=== PATIENT | female | born 1980 | race American Indian/Alaskan Native ===

== ENCOUNTER 2022-01-01 06:05 | Observation (INO) | payer BC ==
--- NOTE | 2021-12-31 15:15 | Anesthesia Consultation ---
Anesthesia Consult and Med Hx Date of service: 01/01/22 - Airway Anesthetic Teeth Evaluation: Good ROM Head & Neck: Adequate Mental/Hyoid Distance: Adequate Mallampati Class: Class II Intubation Access Assessment: Probably Good - Pulmonary Exam CTA: Yes - Cardiac Exam Cardiac Exam: RRR - Pre-Operative Health Status ASA Pre-Surgery Classification: ASA1 Proposed Anesthetic Plan: General Nerve Block: TAP - Pulmonary Hx Smoking: No Hx Respiratory Symptoms: No - Cardiovascular System Hx Hypertension: No - Central Nervous System CVA: No - Endocrine Hx Renal Disease: No Hx Liver Disease: No Hx Insulin Dependent Diabetes: No Hx Non-Insulin Dependent Diabetes: No Hx Thyroid Disease: No - Other Systems Hx Obesity: No - Additional Comments Anesthesia Medical History Comments: No hx anesthetic complications.
[2021-12-31 15:27] LABS: Basophils % (Auto) 0.6 % (0.0-1.8); Eosinophils % (Auto) 0.3 % (0.0-4.3); Hematocrit 38.7 % (30.3-42.9); Hemoglobin 12.5 gm/dl (10.1-14.3); Lymphocytes # (Auto) 1.1 K/mm3 (1.2-5.4); Lymphocytes % (Auto) 27.1 % (13.4-35.0); Mean Corpuscular HGB Conc 32 % (30-34); Mean Corpuscular Volume 87 fl (79-97); Monocytes # (Auto) 0.3 K/mm3 (0.0-0.8); Monocytes % (Auto) 6.4 % (0.0-7.3); Platelet Count 234 K/mm3 (140-440); Red Blood Count 4.47 M/mm3 (3.65-5.03)
--- NOTE | 2021-12-31 18:01 | History and Physical Report ---
History of Present Illness Date of examination: 12/27/21 Chief complaint: Menorrhagia and duysmenorrhea History of present illness: This is a 41 years old female who presents with menstrual disorder. She complains of heavy bleeding, dysmenorrhea and clotting. Menstrual flow lasts > 7 days. Bleeds heavy 3-4/7-8 days and has to change tampons and pads qhour on her heaviest days. Menstrual History: LMP (date): 12/08/2021 Current Method of Contraception: Condoms Past History : 3 Term Births: 2 Living Children: 2 Aborta: 1 Elect. Ab: 1 # 1 Delivery date: 2004 Delivery type: Comments: placenta abruption # 2 Delivery type: # 3 Delivery date: 2020 Delivery type: EAB [facility] History Operations: x2 Cholecystectomy (07/16/2021) Abnormal PAP: negative Infection History HIV Risk Eval: no Hx of STD: chlamydia Active Medications (reviewed today): Vitamin C unspecified unspecified (ascorbic acid (vitamin c)) Vitamin D3 unspecified unspecified (cholecalciferol (vitamin d3)) zinc unspecified unspecified (zinc) Current Allergies (reviewed today): No known allergies Past Medical History: Reviewed history from 08/10/2021 and no changes required: Anemia Sickle cell trait Past Surgical History: Reviewed history from 08/10/2021 and no changes required: x2 Cholecystectomy (07/16/2021) Family History Summary: Reviewed history and no changes required: 12/31/2021 Other Family Member - Has No Family History of Uterine Cancer - Entered On: 09/14/2021 Other Family Member - Has No Family History of Small Bowel Cancer - Entered On: 09/14/2021 Other Family Member - Has No Family History of Stomach Cancer - Entered On: 09/14/2021 Other Family Member - Has No Family History of Pancreatic Cancer - Entered On: 09/14/2021 Other Family Member - Has No Family History of Ovarvian Cancer - Entered On: 09/14/2021 Other Family Member - Has No Family History of Kidney/Urinary Tract Cancer - Entered On: 09/14/2021 Other Family Member - Has No Family History of Spontaneous DVT-PE - Entered On: 09/14/2021 Other Family Member - Has No Family History of Colon Cancer - Entered On: 09/14/2021 Other Family Member - Has No Family History of Brain Cancer - Entered On: 09/14/2021 Other Family Member - Has No Family History of Breast Cancer - Entered On: 09/14/2021 Other Family Member - Has No Family History of Biliary Tract Cancer - Entered On: 09/14/2021 Mother - Has Family History of Cervical Cancer - Entered On: 09/14/2021 Social History: Reviewed history from 08/10/2021 and no changes required: Patient is Smoking History: Patient has never smoked. Risk Factors: Smoked Tobacco Use: Never smoker Smokeless Tobacco Use: Never Passive Smoke Exposure: no HIV High Risk Behavior: no Exercise: yes Seatbelt Use: 100 % Alcohol Use: yes Drinks per day: social Drug Use: no Previous Tobacco Use: Signed On - 09/14/2021 Smoked Tobacco Use: Never smoker Smokeless Tobacco Use: Never Passive Smoke Exposure: no HIV High Risk Behavior: no Exercise: yes Times/wk: 2 Type of Exercise: walking Seatbelt Use: 100 % Alcohol Use: yes Drinks per day: social Drug Use: no Physical Exam Appearance: well developed, well nourished, no acute distress Other Exams Lungs: no rales, rhonchi, or wheezes Heart: S1, S2, no murmur, rub, or gallop Genitourinary Exam Uterus: deferred for EUA Impression & Recommendations: Problem # 1: Menorrhagia (ICD-626.2) (QOK03-H87.0) Diagnosis explained to patient . Questions answered. Discussed with patient various medical and surgical therapies common for treatment: Hormonal/medical therapy,endometrial ablation or hysterectomy. She desires to proceed with hysterectomy. with (B) salpingectomy. Orders: [facility] [id number] ([id number]) Diagnosis explained to patient . Discussed with patient various medical and surgical common for treatment including, but not limited to, medical/hormonal therapy, hysterectomy and ablation. Discussed risks and benefits of laparotomy, laparoscopy, vaginal and robotic assisted approaches for hysterectomies. Patient desires definitive treatment in the form of robot assisted laparoscopic total hysterectomy. The risks and alternatives for this surgery were reviewed with the patient. She was informed of the risks of the surgery including, but not limited to, pain, infection, bleeding possibly heavy enough to require a blood transfusion with associated risks of infections (hepatitis and HIV) and transfusion reactions, possible damage to bowel, bladder or ureter(s) and surrounding organs. She was also informed of slight increased risk for vaginal cuff breakdown with the robotic approach. Patient understands that this surgery will make her sterile. Indications to abort a robotic/laparoscopic procedure and perform an open procedure were explained. Patient understands if her ovaries are removed she will become menopausal. She desires ovarian conservation. She was informed she may require surgery later to have her ovaries removed for a benign or malignant condition.Patient advised the small risks of spreading of malignancy if morcellation is required during the surgery, patient understands and approves performing if necessary. Questions answered. Consent reviewed and signed. Nothing to eat or drink after midnight the evening prior to surgery.. Pre-op instruction sheets given. Wound care instructions given. Problem # 2: Dysmenorrhea (ICD-625.3) (ALX12-E78.6) She was informed she may have pelvic adhesions that may increase the risk for complications. It was extensively explained to her that her pain may persist, recur or change in nature due to the difficulty with determining the exact etiology(ies) of pain or development of adhesions. She declined other treatment options at this time. Questions were encouraged and answered Her updated medication list for this problem includes: Vitamin C Unspecified Unspecified (Ascorbic acid (vitamin c)) Vitamin D3 Unspecified Unspecified (Cholecalciferol (vitamin d3)) Medications and Allergies Allergies Allergy/AdvReac Type Severity Reaction Status Date / Time No Known Allergies Allergy Unverified 12/27/21 08:07 Home Medications Medication Instructions Recorded Confirmed Last Taken Type Multivitamin [Multiple Vitamins] 1 each PO DAILY 12/27/21 12/27/21 Unknown History Active Meds: Active Medications Acetaminophen (Acetaminophen 500 Mg Tab) 1,000 mg PO PREOP SIMEON Stop: 01/01/22 20:00 Celecoxib (Celecoxib 200 Mg Cap) 200 mg PO PREOP NR Stop: 01/01/22 20:00 Fentanyl (Fentanyl 100 Mcg/2 Ml Inj) 100 mcg IV ONCE PRN PRN Reason: sedation for nerve block Stop: 01/01/22 20:00 Gabapentin (Gabapentin 300 Mg Cap) 300 mg PO PREOP NR Stop: 01/01/22 20:00 Lactated Ringer's (Lactated Ringers) 1,000 mls @ 100 mls/hr IV DIRECT SIMEON Stop: 01/01/22 23:59 Cefazolin Sodium (Ancef/Sterile Water 2 Gm/20 Ml) 2 gm in 20 mls @ 80 mls/hr IV PREOP NR; Protocol Midazolam HCl (Midazolam 2 Mg/2 Ml Inj) 2 mg IV PREOP NR Stop: 01/01/22 20:00 Scopolamine (Scopolamine Transdermal Patch 72 Hr) 1 each TD PREOP NR Stop: 01/01/22 20:00 Exam Vital Signs Temp Pulse Resp BP Pulse Ox 98 F 74 20 124/71 100 12/31/21 14:25 12/31/21 14:25 12/31/21 14:25 12/31/21 14:25 12/31/21 14:25 Results - Labs 12/31/21 14:25 Abnormal lab results 12/31/21 Range/Units 14:25 WBC 4.0 L (4.5-11.0) K/mm3 RDW 13.0 L (13.2-15.2) % Lymph # (Auto) 1.1 L (1.2-5.4) K/mm3 Assessment and Plan - Patient Problems (1) Menorrhagia Status: Acute (2) Dysmenorrhea Status: Acute
[~2022-01-01 06:05] MED LIST: ACETAMINOPHEN 500 MG TAB PO SCH; CELECOXIB 200 MG CAP PO NR; GABAPENTIN 300 MG CAP PO NR; LACTATED RINGERS 1,000 ML IV SCH; MIDAZOLAM 2 MG/2 ML INJ IV NR; SCOPOLAMINE TRANSDERMAL PATCH 72 HR TD NR; ceFAZolin/Water 2 GM/20 ML 2 GM/20 ML SYRINGE IV NR; fentaNYL 100 MCG/2 ML INJ IV PRN
[2022-01-01] MEDS ORDERED: ONDANSETRON 4 MG/2 ML INJ IV PRN ×2 (07:15→12:30)
[2022-01-01] MEDS ORDERED: HYDROmorphone 1 MG/1 ML INJ IV PRN (07:15)
--- NOTE | 2022-01-01 07:15 | Anesthesia Day of Surgery ---
Anesthesia Day of Surgery - Day of Surgery Patient Examined: Yes Patient H&P Reviewed: Yes Patient is NPO: Yes
[2022-01-01] MEDS ORDERED: BUPIVACAINE/PF (0.25%) 2.5 MG/ML 30 ML VIAL INFILTRATI ONE (07:18)
[2022-01-01] MEDS ORDERED: cloNIDine/PF 1,000 MCG/10 ML VIAL EP ONE (07:19)
[2022-01-01] MEDS ORDERED: dexAMETHasone 4 MG/ML VIAL ONE (07:19)
[2022-01-01] MEDS ORDERED: LIDOCAINE (1%) 10 MG/1 ML VIAL 20 ML MDV ONE (07:19)
[2022-01-01] MEDS ORDERED: NEOMY 40 MG/POLYMYXIN B 200,000 UNITS/ML (GU) AMPULE IR ONE ×2 (07:28→08:48)
[2022-01-01] MEDS ORDERED: ONDANSETRON 4 MG/2 ML INJ ONE (07:48)
[2022-01-01] MEDS ORDERED: ROCURONIUM 50 MG/5 ML INJ IV ONE (07:48)
[2022-01-01] MEDS ORDERED: LIDOCAINE MPF (2%) 20 MG/1 ML VIAL 5 ML ONE (07:48)
[2022-01-01] MEDS ORDERED: propofoL 200 MG/20 ML VIAL IV ONE (07:49)
[2022-01-01] MEDS ORDERED: fentaNYL 100 MCG/2 ML INJ ONE (07:49)
[2022-01-01] MEDS ORDERED: SODIUM CHLORIDE 0.9% IRRIG SOLN 2000 ML IR ONE (08:48)
[2022-01-01] MEDS ORDERED: HYDROmorphone 1 MG/1 ML INJ ONE (09:01)
[2022-01-01] MEDS ORDERED: METHYLENE BLUE 50 MG/10 ML AMP ONE (09:05)
[2022-01-01] MEDS ORDERED: METHYLENE BLUE 50 MG/10 ML AMP IRRIGATION ONE (09:10)
[2022-01-01] MEDS ORDERED: WATER FOR IRRIG STERILE 1,500 ML BOTTLE IR ONE (09:11)
[2022-01-01] MEDS ORDERED: dexAMETHasone 20 MG/5 ML VIAL ONE (09:38)
[2022-01-01] MEDS ORDERED: LACTATED RINGERS 1,000 ML ONE (09:46)
[2022-01-01] MEDS ORDERED: ceFAZolin 1 GM VIAL ONE (10:47)
[2022-01-01] MEDS ORDERED: GLYCOPYRROLATE 0.4 MG/2 ML INJ ONE (10:47)
[2022-01-01] MEDS ORDERED: NEOSTIGMINE 10MG/10 ML INJ MDV ONE (10:48)
--- NOTE | 2022-01-01 12:05 | Operative Report ---
Operative Report Operative Report: Date: 01/01/2022 Preoperative diagnosis: 1. Menorrhagia 2. Dysmenorrhea 3. Body mass index of 24.8 kg/m Postoperative diagnosis: 1. Menorrhagia 2. Dysmenorrhea 3. Body mass index of 24.8 kg/m 4. Left ovarian cyst 5. Extensive pelvic adhesions Procedure: 1. Robotic-assisted laparoscopic total hysterectomy with bilateral salpingectomy 2. Lysis of pelvic adhesions 3. Left ovarian cystectomy Surgeon: Khloe Edmond MD Customer Operations Manager: FEROZ Núñez Anesthesiologist: Dr. David Steele Anesthesia: General endotracheal anesthesia EBL: Approximately 75 mL Findings: EUA: Uterus palpated to approximately 14 weeks. Uterus was sounded to 11 cm. Grossly normal tubes, approximately 2 cm simple appearing left ovarian cyst. Dense adhesions of the uterus to the anterior abdominal wall. Omental adhesion to the anterior abdominal wall around the umbilicus. Procedure: Patient was taken to the OR and placed in the supine position. General anesthesia was induced and an oral gastric tube was placed. Her neck and head were placed on foam support. Foam eye protection with goggles were secured in place. Then foam face protection was placed and secured. Foam shoulder pads were then positioned on her shoulders for Trendelenburg positioni ng. She was then placed in dorsolithotomy position. Exam under anesthesia as above. The abdomen and vagina were then prepped and draped in the usual sterile fashion. Timeout was performed. A Hernandez catheter was inserted into the bladder with drainage of clear yellow urine. The operative speculum was introduced into the vagina and the anterior lip of the cervix was grasped with single-toothed tenaculum. The uterus was sounded to 11 cm. The cervix was progressively dilated to allow the large V care uterine manipulator. The bulb of the manipulator was inflated and the speculum and tenaculum were removed. The cup of the manipulator was placed around the cervix and the blue occluder of the manipulator was properly positioned in the vagina and secured. A laparotomy sponge that was saturated with a solution of polymyxin and saline was placed in the vagina to ensure pneumoperitoneum. Sterile gloves were placed and attention was turned to the abdomen. A 10 mm midline vertical supraumbilical incision was made approximately 10 cm superior to the elevated fundus of the uterus. A 10-12 mm trocar with the laparoscope and camera attached was introduced through this incision under dir ect visualization. The abdomen was insufflated. No obvious bowel, bladder, ureteral, or major vascular injury was noted. The patient was then placed in steep Trendelenburg position and the following trochars were placed under direct visualization: 8 mm robotic trochars were placed through incisions made in the bilateral midclavicular lower abdominal region approximately 10 cm lateral to the midline incision, and a 5 mm trocar was placed through an incision made in the right lower lateral pelvis. The 10 mm laparoscope was then replaced by a 5 mm laparoscope that was placed through the 5 millimeter lateral trocar. The omental adhesion to the anterior abdominal wall was noted. The patient was removed with EndoShears. Hemostasis was noted. The 12 mm trocar was then removed and the Ronnie Nunes fascial closure device was placed through the incision and a 0 Vicryl was placed through the fascia. Once the suture was secured the 12 mm trocar was reintroduced. Once the trochars were in the appropriate positions, the Soicos Ashley robot system was engaged. The EndoShears and bipolar device was placed through the 8 mm trochars and positioned then attention was turned to the console. Bilateral salpingectomy was performed. Each tube was removed through the 5 mm trocar and sent to pathology in separate containers. Then the utero-ovarian ligaments were clamped, cauterized and inc ised bilaterally using 30 W of energy. Then the round ligaments were clamped, cauterized and incised bilaterally. The anterior leaf of the broad ligament was elevated and with careful blunt and sharp dissection the bladder flap was created and dissected away from the lower uterine segment and cervix. The anterior adhesion of the uterus to the abdominal wall was carefully dissected. The anterior outline of the uterine manipulator was palpated, allowing the ability to further dissect the bladder safely away from the lower uterine segment. One hundred-eighty mL of dilute methylene blue was infused in the bladder to further outline bladder position. Then again attention was turned to the uterine adhesion with careful dissection was performed. Once the bladder was dissected away from the lower uterine segment, the remainder of the adhesion of the anterior abdominal wall the uterus was released. No leakage of dilute methylene blue was noted. The methylene blue was then released from the bladder into the Hernandez bag. The posterior leaf of the broad ligament was dissected away from the uterine vessels. The cup of the uterine manipulator was palpated both anteriorly and posteriorly. The bladder was further dissected away from the lower uterine segment. The uterine vessels were then clamped and cauterized bilaterally. Blanching of the uterus was then noted. Attention was again turned to the anterior lower uterine segment and the bladder was confirmed to be away from the operative field. Then attention was turned again to the posterior where the cup of the manipulator was palpated and a colpotomy was performed down to the cup. The incision was extended in the lateral position to the uterine vessels that were again clamped and cauterized and incised. Continuing along the cup of the manipulator in a circumferential manner the colpotomy was completed. The uterus and cervix were then removed through the vaginal incision. The pelvis was irrigated with warm normal saline. A moist laparotomy sponge was placed in the vagina to maintain pneumoperitoneum. The vagina cuff was reapproximated using V LOC 180 suture. Then a J stitch was performed to secure the suture. Again the pelvis was copiously irrigated with polymixin in warm normal saline. The laparotomy sponge was removed from the vagina. No obvious evidence of bowel, bladder, ureteral, or major vascular injury was noted. Attention was turned to the left adnexa. At this point it was noted that the left ovarian cyst was inadvertently ruptured during the manipulation. The cyst was removed. Using cautery the ovary was made hemostatic. one hundred-eighty mL of dilute methylene blue was again infused into the bladder. And again no leakage of the dye into the pelvis was noted. The dye wa s released again into the Hernandez catheter. Once hemostasis was noted, Surgicel powder was applied to the operative field to ensure hemostasis. The pelvis was again irrigated with warm normal saline to remove excess Surgicel powder. Hemostasis was noted. Then the instruments were removed, the robot was disengaged. The 12 mm trocar was removed and the fascia was ligated with the 0 Vicryl suture that was placed at the beginning of the procedure. The patient was taken out of Trendelenburg position, the abdomen was desufflated, the remaining trochars were removed. Incisions were reapproximated using 4-0 Monocryl in a subcuticular manner. Surgiseal was placed over the other incisions. The vagina was then inspected, the cuff was palpated to be intact and no bleeding was noted and clear light blue urine was draining into the Hernandez bag from the bladder at the end of the procedure. No evidence of blood was noted in the Hernandez catheter. Counts were correct 3. Patient was taken to recovery room in stable condition. No bleeding from the vagina was noted at the end of the procedure.
[2022-01-01] MEDS ORDERED: MORPHINE 2 MG/1 ML INJ IV PRN (12:30)
[2022-01-01] MEDS ORDERED: METOCLOPRAMIDE 10 MG/2 ML INJ IV PRN (12:30)
[2022-01-01] MEDS ORDERED: SODIUM CHLORIDE 0.9% 1000 ML 1,000 ML IV SCH (12:30)
[2022-01-01] MEDS ORDERED: METOCLOPRAMIDE 10 MG TAB PO PRN (12:30)
[2022-01-01] MEDS: ACETAMINOPHEN 500 MG TAB PO SCH ×2 (14:56→22:32)
--- NOTE | 2022-01-01 15:26 | Post Anesthesia Evaluation ---
- Post Anesthesia Evaluation Patient Participated: Yes Airway Patent: Yes Stable Respiratory Function: Yes Nausea/Vomiting: No Temp > 96.8F: Yes Pain Manageable: Yes Adequeate Hydration: Yes Anesthesia Complications: No
--- NOTE | 2022-01-01 17:36 | Progress Note ---
Assessment and Plan Urine clear and copious Operative findings and procedures explained. Plan of care explained to patient and her . Questions encouraged and answered. She voiced understanding and agrees with course of care - Patient Problems (1) Menorrhagia Current Visit: No Status: Resolved (2) Dysmenorrhea Current Visit: No Status: Resolved Subjective - Subjective Date of service: 01/01/22 Principal diagnosis: DOS s/p RALTH, (B) s'ectomy, ALLEY, (L) ov c'ectomy Interval history: Rest in bed, alert and appropriately responsive Patient reports: pain well controlled, no nauseated Objective - Vital Signs Latest vital signs: Vital Signs Temp Pulse Resp BP BP Pulse Ox 01/01/22 16:05 97.2 F L 57 L 20 117/58 100 01/01/22 12:11 97.4 F L 61 14 93/60 100 01/01/22 12:10 100 01/01/22 11:30 60 14 101/58 100 01/01/22 07:55 12 01/01/22 07:51 64 12 92/60 100 01/01/22 07:46 61 12 92/60 100 01/01/22 07:41 61 11 L 95/63 100 01/01/22 07:36 60 10 L 100/64 100 01/01/22 07:31 60 12 100/58 100 01/01/22 07:26 67 11 L 112/72 100 01/01/22 07:24 14 01/01/22 07:21 65 10 L 102/63 100 01/01/22 07:00 16 01/01/22 06:45 98.6 F 71 16 103/70 100 01/01/22 06:40 16 01/01/22 06:28 98.6 F 71 17 103/70 100 Intake and Output 01/01/22 01/01/22 01/01/22 06:59 14:59 22:59 Intake Total 200 90 Output Total 175 0 Balance 25 90 Intake: IV 200 Oral 90 Output: Urine 175 0 Indwelling Catheter 0 Other: Total, Intake Amount 90 Total, Output Amount 0 Voiding Method Toilet Indwelling Catheter Weight 63.503 kg Patient Weight 01/02/22 06:59 Weight 63.503 kg - Exam Breasts: Present: deferred Cardiovascular: Present: Regular rate Lungs: Present: Clear to auscultation, Normal air movement Abdomen: Present: normal appearance, soft, normal bowel sounds. Absent: distention, tenderness, guarding Extremities: Present: other (SCD's on both legs and functioning properly) Incision: Present: normal, dry, intact
[2022-01-01] MEDS: ceFAZolin/NS 1 GM/50 ML 1 GM/50 ML BAG IV SCH (18:48)
[2022-01-01] MEDS: KETOROLAC 30 MG/1 ML INJ IV SCH (18:50)
[2022-01-01] MEDS ORDERED: FAMOTIDINE 20 MG/2 ML INJ IV SCH (22:00)
[2022-01-02] MEDS: ceFAZolin/NS 1 GM/50 ML 1 GM/50 ML BAG IV SCH (02:38)
[2022-01-02] MEDS: KETOROLAC 30 MG/1 ML INJ IV SCH (02:39)
[2022-01-02] MEDS: ACETAMINOPHEN 500 MG TAB PO SCH (06:00)
[2022-01-02 08:07] LABS: Hematocrit 28.5 % (30.3-42.9); Hemoglobin 9.8 gm/dl (10.1-14.3)
--- NOTE | 2022-01-02 08:46 | Discharge Summary ---
Providers - Providers Date of Admission: 01/01/22 11:30 Date of discharge: 01/02/22 Attending physician: KAYKAY ANDERSON Primary care physician: MIMI PAGE Hospitalization Reason for admission: Hysterectomy Condition: Good Procedures: RALTH, bilateral salpingectomy, (L) ovarian cystectomy, lysis of severe pelvic adhesion Hospital course: Normal Disposition: 01 HOME / SELF CARE / HOMELESS Final Discharge Diagnosis (Prints w/discharge instructions): RALTH, bilateral salpingectomy, (L) ovarian cystectomy, lysis of severe pelvic adhesion - Discharge Diagnoses (1) Menorrhagia Status: Resolved (2) Dysmenorrhea Status: Resolved (3) History of robot-assisted laparoscopic hysterectomy Status: Acute (4) Status post bilateral salpingectomy Status: Acute (5) Pelvic adhesions Status: Acute (6) Cyst of left ovary Status: Acute Core Measure Documentation - Palliative Care Palliative Care/ Comfort Measures: Not Applicable - Core Measures Any of the following diagnoses?: none Exam - Physical Exam Narrative exam: Sitting bed, eating, + void, no complaints, ambulating w/o dizziness - Constitutional Vitals: Temp Pulse Resp BP Pulse Ox 98.5 F 72 20 93/54 100 01/02/22 05:02 01/02/22 05:02 01/02/22 05:02 01/02/22 05:02 01/02/22 08:00 General appearance: Present: no acute distress - Neck Neck: Present: supple - Respiratory Respiratory effort: normal Respiratory: bilateral: CTA - Cardiovascular Rhythm: regular - Extremities Extremities: no ischemia, No edema (NT) - Abdominal General gastrointestinal: Present: soft, non-tender, non-distended, normal bowel sounds - Integumentary Integumentary: Present: clear (Incisions:C/D/I, no s/s infection or separation), warm, dry - Psychiatric Psychiatric: appropriate mood/affect, intact judgment & insight, memory intact, cooperative - Neurologic Neurologic: CNII-XII intact Plan Activity: other (No sex, ambulate on your property ~1mile a day, void every hour. Rotate your ankles while sitting. No driving. ) Weight Bearing Status: Full Weight Bearing Diet: regular (Eat small meals frequently. Avoid spicy, high salt and high fat diets. Drink ~64 oz water a day. ) Wound: open to air, keep clean and dry Special Instructions: no heavy lifting (Greater >15 pounds a day) Follow up with: MIMI PAGE MD [Primary Care Provider] - 7 Days KAYKAY ANDERSON MD [Staff Physician] - (As scheduled) Prescriptions: Ibuprofen [Motrin 800 MG tab] 800 mg PO Q8H PRN #30 tablet PRN Reason: Pain, Moderate (4-6) oxyCODONE /ACETAMINOPHEN [Percocet 5/325 mg] 1 - 2 tab PO Q6H PRN #7 tablet PRN Reason: Pain, Moderate (4-6)
[2022-01-02 10:53] VITALS: BP 100/63
[2022-01-02] MEDS ORDERED: IBUPROFEN 800 MG TAB PO PRN (11:33)
[2022-01-02] MEDS ORDERED: oxyCODONE /ACETAMINOPHEN 5-325MG TAB PO PRN (11:33)
== END 2022-01-02 11:43 | disposition home or self-care (01) ==
LOC: OR 06:05 → OB 11:30
PROVIDERS: ADMIT Obstetrics & Gynecology; ATTEND Obstetrics & Gynecology
DX: N92.0 Excessive and frequent menstruation with regular cycle (principal); Z20.822 Contact with and (suspected) exposure to COVID-19; N94.6 Dysmenorrhea, unspecified; Z90.710 Acquired absence of both cervix and uterus; Z98.891 History of uterine scar from previous surgery; Z90.49 Acquired absence of other specified parts of digestive tract; Z79.899 Other long term (current) drug therapy; Z98.890 Other specified postprocedural states
CPT/HCPCS: 36415; 58552; 64488; 81025; 85014; 85018; 85025; 86850; 86900; 86901; 88302; 88305; 88307; 96365; 96366; 96375; 96376; G0378; J0690; J0735; J1100; J1170; J1815; J1885; J2250; J2405; J2704; J2710; J3010; J3490; J7030; J7120; Q9968; S2900; U0003; 64450; Q0162